=== PATIENT | male | born 1960 | race African-American/Black ===

== ENCOUNTER 2022-05-08 16:50 | Emergency (ER) | payer OTHER ==
[~2022-05-08] VITALS: Ht 182.9 cm; Wt 113.6 kg
[2022-05-08 16:52] VITALS: BP 182/101
[2022-05-08 17:37] LABS: Basophils # (auto) 0 10 ^3/uL (0-0.2); Eosinophils # (auto) 0.1 10 ^3/uL (0-0.8); Lymphocytes # (auto) 2.3 10 ^3/uL (0.4-5.4); Lymphocytes % (auto) 21.6 % (10.0-50.0); Neutrophils % (auto) 67.5 % (37.0-80.0); Nucleated Red Blood Cells % 0.1 %; White Blood Cell 10.6 10^3/uL (4.4-10.8)
[2022-05-08 17:38] LABS: Basophils % (auto) 0.3 % (0.0-2.0); Eosinophils % (auto) 0.7 % (0.0-7.0); Hematocrit 46.4 % (41.0-53.0); Mean Corpuscular Hgb Conc. 32.2 g/dL (32.0-36.0); Mean Corpuscular Volume 83.7 fL (80.0-100.0); Monocytes % (auto) 9.9 % (0.0-12.0); Neutrophils # (auto) 7.1 10 ^3/uL (1.6-8.6); Red Blood Cells 5.55 10^6/uL (4.5-5.90); Red Cell Distribution Width 14.7 % (11.8-14.3)
[2022-05-08 17:40] LABS: Albumin 4.1 g/dL (3.4-5.0); BUN/Creatinine Ratio 19.1; Calcium 9.1 mg/dL (8.5-10.1); Potassium 4.3 mmol/L (3.5-5.1)
[2022-05-08 17:43] LABS: Bilirubin, Total 0.3 mg/dL (0.2-1.0); Total Protein 7.7 g/dL (6.4-8.2)
[2022-05-08] MEDS ORDERED: KETOROLAC TROMETH 60MG/2ML VIAL IM ONE (17:45)
[2022-05-08] MEDS ORDERED: TRAM-297 PO (20:29)
== END 2022-05-08 21:53 | disposition home or self-care (01) ==
LOC: ER 16:50
DX: M25.512 Pain in left shoulder (principal); E78.5 Hyperlipidemia, unspecified; I10 Essential (primary) hypertension
CPT/HCPCS: 36415; 71045; 73200; 80053; 83880; 84484; 85025; 93005; 96372; J1885